=== PATIENT | female | born 1980 | race African-American/Black ===

== ENCOUNTER 2019-07-26 17:07 | Emergency (ER) | payer BC, OTHER ==
[2019-07-26] MEDS ORDERED: DIPHTH,PERTUSS(ACELL),TET 0.5 ML DISP.SYRIN IM ONE ×2 (17:10→17:36)
[2019-07-26 17:12] VITALS: BP 120/75; PULSE 72; TEMP 98.6; BMI 31.6
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
== END 2019-07-26 18:00 | disposition home or self-care (01) ==
LOC: JERFT 17:07
PROC: 3E0234Z Introduction of Serum, Toxoid and Vaccine into Muscle, Percutaneous Approach (ICD-10-PCS; principal; 2019-07-26)
DX: S20.161A Insect bite (nonvenomous) of breast, right breast, initial encounter (principal); W50.3XXA Accidental bite by another person, initial encounter; Y92.9 Unspecified place or not applicable; Y93.9 Activity, unspecified
CPT/HCPCS: 90715; 99281-25

== ENCOUNTER 2020-01-07 09:29 | Emergency (ER) | payer OTHER ==
[2020-01-07 09:40] VITALS: BP 120/80; PULSE 86; TEMP 98; BMI 32.9
--- NOTE | 2020-01-07 10:54 | PDOC ---
History of Present Illness - General Chief Complaint: Laceration Stated Complaint: LAC LT 1ST DIG Time Seen by Provider: 01/07/20 10:34 History Source: Patient Exam Limitations: No Limitations - History of Present Illness Initial Comments: 01/07/20 10:51 Patient is a 39-year-old female who presents to the ED with a right index finger laceration that she sustained just prior to arrival. She states she got some new knives, and was trying to cut butter, and slipped and cut her finger. She states her last tetanus booster was 1 year ago. She denies any numbness or tingling. She is right-hand dominant. The wound was cleaned immediately upon arrival to the ED. Past History - Past Medical History Allergies/Adverse Reactions: Allergies Allergy/AdvReac Type Severity Reaction Status Date / Time No Known Allergies Allergy Verified 01/07/20 09:40 Home Medications: Ambulatory Orders No Home Medications 0 dose .ROUTE UTDICT 10/13/12 COPD: No - Immunization History Immunization Up to Date: No - Psycho Social/Smoking Cessation Hx Smoking Status: No Smoking History: Never smoked Number of Cigarettes Smoked Daily: 0 Review of Systems - Review of Systems Comments:: 01/07/20 10:52 - Review of Systems Able to Perform ROS?: Yes Constitutional: No: Fever, Chills, Loss of Appetite, Night Sweats, Weakness Respiratory: No: Cough, Shortness of Breath, Wheezing, Sputum Production Cardiac (ROS): No: Chest Pain, Chest Tightness, Palpitations, Irregular Heart Beat, Edema ABD/GI: No: Nausea, Vomiting, Abdominal Pain, Diarrhea Musculoskeletal: No: Muscle Pain, Back Pain, Joint Pain, Muscle Weakness, Neck Pain Integumentary: No: Lesions, Rash; Left index finger laceration Neurological: No: Headache, Numbness, Tingling, Weakness, Speech Difficulties *Physical Exam - Vital Signs Last Vital Signs Temp Pulse Resp BP Pulse Ox 98 F 86 18 120/80 99 01/07/20 09:37 01/07/20 09:37 01/07/20 09:37 01/07/20 09:37 01/07/20 09:37 - Physical Exam 01/07/20 10:53 - Physical Exam General Appearance: Nourished, Appropriately Dressed, No Distress Neck: Supple, No Lymphadenopathy (R), No Lymphadenopathy (L), No Rigidity, No Decreased range of motion Respiratory/Chest: Lungs Clear, Normal Breath Sounds. No Respiratory Distress, No Accessory Muscle Use Cardiovascular: Regular Rhythm, Regular Rate, S1, S2 Musculoskeletal: Normal Inspection. No Decreased Range of Motion Extremity: Normal Capillary Refill, Normal Inspection Integumentary: Normal Color, Dry. No Rash; 1 cm laceration to the distal aspect of the index finger on the left, lateral aspect. The laceration is a flap laceration. There is no nailbed involvement. Mild active bleeding. No sign of foreign body. 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 Plan: -Laceration repair -Tetanus is up-to-date -Patient to return in 7 days for suture removal. She should keep the wound clean and dry. She has been given strict return precautions for high fevers, pus from the wound, wound dehiscence. Discharge - Discharge Information Problems reviewed: Yes Clinical Impression/Diagnosis: Laceration of finger of left hand Qualifiers: Encounter type: initial encounter Finger: index finger Damage to nail status: without damage Foreign body presence: without foreign body Qualified Code(s): S61.211A - Laceration without foreign body of left index finger without damage to nail, initial encounter Condition: Stable Disposition: HOME - Follow up/Referral Referrals: Pawan Brandt MD [Primary Care Provider] - - Patient Discharge Instructions Patient Printed Discharge Instructions: DI for Laceration Repair Additional Instructions: Keep the wound clean and dry until the morning of 01/09/2020. On Wednesday morning you can remove the bandage and wash the wound gently with warm water and soap. Allowed to dry for at least 30 minutes. You can keep the wound uncovered if at home and resting but cover while away from home with a normal bandage. Return to the emergency department in 7 days to have the sutures removed. You have had 7 sutures placed today. - Post Discharge Activity Work/Back to School Note: Back to Work
== END 2020-01-07 11:25 | disposition home or self-care (01) ==
LOC: JERFT 09:29
PROC: 0HQGXZZ Repair Left Hand Skin, External Approach (ICD-10-PCS; principal; 2020-01-07)
DX: S61.211A Laceration without foreign body of left index finger without damage to nail, initial encounter (principal); W26.0XXA Contact with knife, initial encounter; Y93.G9 Activity, other involving cooking and grilling; Y92.030 Kitchen in apartment as the place of occurrence of the external cause; Y99.8 Other external cause status
CPT/HCPCS: 12001-25; 99283-25

== ENCOUNTER 2020-01-14 09:15 | Emergency (ER) | payer OTHER ==
[2020-01-14 09:29] VITALS: BP 158/100; PULSE 68; TEMP 98.2; BMI 31.6
--- NOTE | 2020-01-14 10:37 | PDOC ---
Suture Removal/Wound Check HPI - History of Present Illness Chief Complaint: Suture/Staple Removal(Here) Stated Complaint: SUTURE REMOVAL Time Seen by Provider: 01/14/20 10:00 History Source: Yes: Patient Exam Limitations: Yes: No Limitations Treated at: [facility] ED - Previous ED Treatment Type of procedure performed on last visit: Yes: Laceration Repair Tetanus Immunization: Yes: Up to Date Antibiotics Prescribed: No Past History - Past Medical History Allergies/Adverse Reactions: Allergies Allergy/AdvReac Type Severity Reaction Status Date / Time No Known Allergies Allergy Verified 01/14/20 09:29 Home Medications: Ambulatory Orders No Home Medications 0 dose .ROUTE UTDICT 10/13/12 COPD: No - Immunization History Immunization Up to Date: Yes - Psycho Social/Smoking Cessation Hx Smoking Status: No Smoking History: Never smoked Number of Cigarettes Smoked Daily: 0 Suture Removal/Wound Check PE - Physical Exam Laceration/Wound Check Symptoms: reports: None. denies: Fever, Chills, Redness , Weakness Current Severity Level: None Location of Laceration/Wound: left: Finger (left index finger) *Review of Systems - Review of Systems Able to Perform ROS?: Yes Constitutional: No: Chills, Fever, Malaise HEENTM: No: Symptoms Reported Respiratory: No: Symptoms reported Cardiac (ROS): No: Symptoms Reported Musculoskeletal: No: Symptoms Reported, See HPI, Muscle Pain (left index finger) Integumentary: Yes: Symptoms Reported, See HPI, Other (laceration to left index finger with sutures in place) Neurological: No: Symptoms reported, Numbness, Paresthesia, Tingling, Weakness All Other Systems: Reviewed and Negative *Physical Exam - Vital Signs Last Vital Signs Temp Pulse Resp BP Pulse Ox 98.2 F 68 18 158/100 99 01/14/20 09:26 01/14/20 09:26 01/14/20 09:26 01/14/20 09:26 01/14/20 09:26 - Physical Exam General Appearance: Yes: Nourished, Appropriately Dressed. No: Apparent Distress HEENT: positive: Normal ENT Inspection Respiratory/Chest: negative: Respiratory Distress, Accessory Muscle Use Musculoskeletal: positive: Normal Inspection Extremity: positive: Normal Inspection Integumentary: positive: Normal Color, Other (well healed 2cm laceration to plantar aspect of distal phalange of left index finger. no discharge from wound. no wound dehiscence, no skin erythema. no evidence of wound infection) Neurologic: positive: Fully Oriented, Alert, Normal Response, Motor Strength 5/5 Medical Decision Making - Medical Decision Making 01/14/20 10:42 Patient with no symptoms now past medical history present for suture removal status post presenting a week ago with laceration to left index finger from a knife while cutting butter in her house. Patient had sutures placed a week ago. Denies numbness or tingling sensation. Denies discharge or redness to wound site. Patient up-to-date on tetanus vaccine. Exam significant for 2 cm well-healed laceration to distal plantar aspect of distal phalange of left index finger with [address] No erythema to skin. No wound dehiscence. No evidence of wound infection. Sutures removed with suture removal kit without complication. Bacitracin applied to wound. Patient stable for discharge and educated on continued wound care and apply bacitracin twice a day to wound until healed Discharge - Discharge Information Problems reviewed: Yes Clinical Impression/Diagnosis: Encounter for removal of sutures Laceration of finger of left hand Qualifiers: Encounter type: subsequent encounter Finger: index finger Damage to nail status : without damage Foreign body presence: without foreign body Qualified Code(s): S61.211D - Laceration without foreign body of left index finger without damage to nail, subsequent encounter Condition: Stable Disposition: HOME - Admission No - Follow up/Referral Referrals: Gabriel Brandt [Primary Care Provider] - - Patient Discharge Instructions Patient Printed Discharge Instructions: DI for Suture Removal Additional Instructions: Keep wound clean and dry . Continue applying bacitracin to wound twice a day until fully healed. Take Motrin as needed for pain - Post Discharge Activity
== END 2020-01-14 10:40 | disposition home or self-care (01) ==
LOC: JERFT 09:15
DX: Z48.817 Encounter for surgical aftercare following surgery on the skin and subcutaneous tissue (principal); Z48.02 Encounter for removal of sutures
CPT/HCPCS: 99281-25

== ENCOUNTER 2022-10-22 17:12 | Emergency (ER) | payer BC, OTHER ==
[2022-10-22 17:36] VITALS: BP 141/93; PULSE 116; RESP 20; TEMP 97.6; BMI 28.3
[2022-10-22] MEDS ORDERED: SODIUM CHLORIDE 0.9% 500 ML INFUS.BAG IV ONE (17:56)
[2022-10-22] MEDS ORDERED: FAMOTIDINE 20 MG/50 ML IVPB 20 MG/50 ML MG IVPB ONE ×2 (17:56→17:59)
[2022-10-22] MEDS ORDERED: methylPREDNISolone NA SUCC 125 MG/2 ML VIAL IVPUSH ONE (17:56)
[2022-10-22] MEDS ORDERED: methylPREDNISolone NA SUCC 125 MG/2 ML VIAL ONE (17:59)
== END 2022-10-22 19:26 | disposition home or self-care (01) ==
LOC: JER 17:12
PROC: 3E033NZ Introduction of Analgesics, Hypnotics, Sedatives into Peripheral Vein, Percutaneous Approach (ICD-10-PCS; principal; 2022-10-22)
PROC: 3E033GC Introduction of Other Therapeutic Substance into Peripheral Vein, Percutaneous Approach (ICD-10-PCS; 2022-10-22)
PROC: 3E033GC Introduction of Other Therapeutic Substance into Peripheral Vein, Percutaneous Approach (ICD-10-PCS; 2022-10-22)
DX: L50.9 Urticaria, unspecified (principal)
CPT/HCPCS: 99283-25